=== PATIENT | female | born 2000 | race Two or more races ===

== ENCOUNTER 2024-09-05 17:05 | Emergency (ER) | payer MEDICAID, SELFPAY ==
[2024-09-05 17:09] VITALS: BMI 21.4
[2024-09-05 17:49] VITALS: BP 161/88; PULSE 76; RESP 18; TEMP 36.9; O2SAT 98
--- NOTE | 2024-09-05 17:54 | PD.EDRME ---
Rapid Medical Screening Exam RME Arrival date/time: 09/05/24 17:05 23-year-old female presents to the emergency department complaint of abdominal pain Chief Complaint: Abdominal Pain Vital signs: Vital Signs Temperature 98.5 F 09/05/24 17:49 Pulse Rate 76 09/05/24 17:49 Respiratory Rate 18 09/05/24 17:49 Blood Pressure 161/88 H 09/05/24 17:49 Pulse Oximetry (%) 98 09/05/24 17:49 Oxygen Delivery Method Room Air 09/05/24 17:49
--- NOTE | 2024-09-05 17:55 | XR_ITS ---
Examination: CT abdomen and pelvis without contrast. Coronal 3-D reconstructions. Sagittal 2-D reconstructions. Date and time of exam:September 15, 2024 1925 hrs. Indications: Sudden onset left lower abdominal pain nausea today CTDI: vol (mGy): 131 DLP: (mGycm): 252 Technique: Axial images of the abdomen have been obtained, 3 mm slice thickness Intravenous contrast material has not been administered. Low dose protocols were performed. One or more of the following dose reduction techniques were used; automated exposure control, adjustment of the mA and/or KV according to patient size, use of iterative reconstruction technique. Findings: No focal liver or splenic lesions Contracted gallbladder No pancreatic mass No renal or ureteral calculi, no hydronephrosis Aorta normal size No bowel obstruction Partial visualization normal appendix No diverticulitis Contracted urinary bladder with urinary bladder wall thickening Impression: No renal or ureteral calculi No CT findings of appendicitis or bowel obstruction Thickened urinary bladder wall, consider cystitis
[2024-09-05 18:26] LABS: Basophils % (Auto) 1 % (0-2.5); Eosinophils # (Auto) 0.1 Thou/mm3 (0.0-0.5); Eosinophils % (Auto) 1 % (0-10); Hematocrit 44.3 % (36.0-46.0); Hemoglobin 14.4 g/dL (12.0-16.0); Immature Granulocytes % (Auto) 0 % (0-0); Immature Granulocytes Auto 0.01 Thou/mm3 (0.00-0.00); Lymphocytes # (Auto) 2.1 Thou/mm3 (1.0-4.8); Lymphocytes % (Auto) 32 % (10-50); Mean Corpuscular HGB Conc 32.5 g/dl (31.0-37.0); Mean Corpuscular Volume 83 fL (80-100); Monocytes # (Auto) 0.7 Thou/mm3 (0.0-0.8); Monocytes % (Auto) 10 % (0-12); Neutrophils # (Auto) 3.7 Thou/mm3 (1.8-7.7); Neutrophils % (Auto) 56 % (37-80); Nucleated Red Blood Cell % 0 /100 WBC (0); Platelet Count 310 Thou/mm3 (140-440); RDW Standard Deviation 40.7 fL (36.4-46.3); Red Blood Count 5.34 Miln/mm3 (4.00-5.20); White Blood Count 6.6 Thou/mm3 (3.6-11.0)
[2024-09-05 18:43] LABS: Alanine Aminotransferase 11 U/L (10-49); Albumin, Serum 5.6 gm/dL (3.5-5.0); Albumin/Globulin Ratio 2.2 (1.2-2.2); Alkaline Phosphatase 78 U/L (46-116); Anion Gap 10 (7-16); Aspartate Amino Transferase 21 U/L (0-34); BUN/Creatinine Ratio 17 Ratio (12-20); Bilirubin,Total 1.9 mg/dL (0.3-1.2); Blood Urea Nitrogen 15 mg/dL (9-23); Calcium 10.5 mg/dL (8.3-10.6); Calcium (Corrected) 10.5 mg/dL (8.5-10.1); Carbon Dioxide 26.9 mMol/L (20.0-31.0); Chloride 107 mMol/L (98-107); Creatinine (Component) 0.9 mg/dL (0.6-1.3); Estimated Creatinine Clearance 85.4 mL/min (>60); Globulin 2.5 gm/dL (2.3-3.5); Glucose 96 mg/dL (74-106); Lipase 40 U/L (12-53); Osmolality,Calculated 287 (275-295); Potassium 4.8 mMol/L (3.4-5.1); Sodium 144 mMol/L (136-145); Total Protein 8.1 gm/dL (5.7-8.2); eGFR > 60 See Note
[2024-09-05 18:57] LABS: Collection Type, Urine Clean Catch
[2024-09-05 19:12] LABS: Bilirubin,Urine Negative (Negative); Blood,Urine Negative (Negative); Clarity,Urine Clear (Clear/Hazy); Color,Urine Yellow (Lt Yel-Yel); Culture Indicated,Urine Not Indicated; Glucose, Urine Negative (Negative); Ketones,Urine Trace (Negative); Leukocyte Esterase,Urine Negative (Negative); Nitrite,Urine Negative (Negative); Protein,Urine Trace (Neg - Trace); RBC,Urine 4 /hpf (0-3); Specific Gravity,Urine 1.034 (1.001-1.035); Squamous Epithelial Cell,Urine 2 /hpf (0-5); Urobilinogen,Urine Negative mg/dL (0.0-1.0); WBC,Urine 1 /hpf (0-5)
[2024-09-05 19:13] LABS: HCG Qualitative,Urine Negative
--- NOTE | 2024-09-05 21:07 | PD.EDABDPN ---
ED Abdominal Pain RME/HPI General Chief Complaint: Abdominal Pain Stated complaint: ABD PAIN SINCE THIS AM Time seen by provider: 09/05/24 18:46 Arrival date/time: 09/05/24 17:05 RME / HPI RME / HPI narrative: 23-year-old female presents to the emergency department complaint of abdominal pain. Onset of symptoms earlier this morning as left lower quadrant pain described as dull ache, severity mild. Patient denies any dysuria denies any fever denies any vomiting denies any other complaints no medication was taken prior travel. Related Data Previous Rx's ?Medication ?Instructions ?Recorded ibuprofen 600 mg tablet 600 mg PO Q8H PRN pain #30 tabs 11/11/21 ondansetron 4 mg disintegrating 4 mg PO Q8H PRN nausea and 02/14/23 tablet vomiting #10 tabs Allergies Allergy/AdvReac Type Severity Reaction Status Date / Time No Known Allergies Allergy Verified 09/05/24 17:05 Review of Systems Review of Systems Narrative Review of Systems: Review of system reviewed and within normal limits except mentioned in HPI ED Exam Narrative Physical exam: VITAL SIGNS: Reviewed. GENERAL APPEARANCE: Alert and interactive, follows commands, no acute distress, HEAD AND FACE: Non-traumatic. ENT: PERRL, pink conjunctivitis, eyelid no trauma, Mucous membrane moist. NECK: Supple, nontender, no nuchal rigidity. CHEST: No tenderness, no crepitus, no paradoxical movement, no retractions. LUNGS: Clear, well ventilated, symmetric, no rales, no wheezing, no ronchi, no stridor, good breath sounds bilaterally. HEART: Regular rate, regular rhythm, no murmur, no gallops. ABDOMEN: Soft, positive bowel sounds, nondistended, no guarding, nontender, no rebound, no masses, RECTAL: Deferred. GENITAL: Deferred. NEUROLOGICAL: Gross motor function intact sensory function intact, Appropriate for age. MUSCULOSKELETAL: low back nontender, full range of motion. EXTREMITIES: Nontender, full range of motion. SKIN: Color pink, dry, no rash, no lacerations, no abrasions, no contusions. LYMPHATICS: Deferred. Course Quality Measures none Orders Category Date Time Status CT abdomen pelvis wo con Stat Exams 09/05/24 17:55 Completed CBC Stat Lab 09/05/24 18:00 Completed Comprehensive Metabolic Panel Stat Lab 09/05/24 18:00 Completed HCG Qualitative,Urine Stat Lab 09/05/24 18:50 Completed Lipase Stat Lab 09/05/24 18:00 Completed UA, C/S IF [Urinalysis, C/S if Indicated] Stat Lab 09/05/24 18:50 Completed Vital Signs Vital signs: Vital Signs Temperature 98.5 F 09/05/24 17:49 Pulse Rate 76 09/05/24 17:49 Respiratory Rate 18 09/05/24 17:49 Blood Pressure 161/88 H 09/05/24 17:49 Pulse Oximetry (%) 98 09/05/24 17:49 Oxygen Delivery Method Room Air 09/05/24 17:49 Abdominal Pain MDM [facility] Narrative [facility] Narrative:: 23-year-old female presents to the emergency department complaint of abdominal pain. Onset of symptoms earlier this morning as left lower quadrant pain described as dull ache, severity mild. Patient denies any dysuria denies any fever denies any vomiting denies any other complaints no medication was taken prior travel. Laboratory workup all came back normal, no leukocytosis on CBC, CMP unremarkable, urinalysis no UTI. CT scan of the abdomen pelvis came back unremarkable. Results discussed with the family. Patient Patient appears nontoxic and hemodynamically stable. Patient discharged home and instructed to follow-up with primary care provider in 24 to 48 hours. Instructed to return to the emergency department immediately if worsening of symptoms Patient data External records reviewed:: None Clinical information provided by:: patient and family Social determinants that could affect healthcare access:: none Patient has the following chronic illnesses:: None How is presenting disease/condition affected by chronic disease/condition?: no chronic disease Evaluation data The following diagnostics were reviewed and interpreted by me:: lab results and radiology exam(s) Lab and/or radiology exams considered but not ordered:: None Interpretation Summary: See results in MDM Medications / Prescriptions Medications or Prescriptions considered but not ordered:: None Medication administrations:: None Consultations Consultation(s) initiated? (list below): No Diagnosis Differential diagnosis abdominal pain: abdominal pain and acute appendicitis Most likely diagnosis given after review of the tests above:: Abdominal pain Admission Indicated Admission indicated?: not indicated Admission Request Was there a request for admission?: No Disposition Plan Disposition Plan: Discharge Discharge Attestation Discharge Attestation: The patient and all family members were given an opportunity to ask questions and understood the discharge instructions. Discharge instructions specifically effects, indications for sooner follow up or return to the emergency department, and the expected course of current diagnosis. Patient condition: Stable Discharge Plan Plan Patient Disposition: HOME (Self Care) Disposition Comment: stable Prescriptions/Referrals Prescriptions/Med Rec: No Action ibuprofen 600 mg tablet 600 mg PO Q8H PRN (Reason: pain) Qty: 30 0RF ondansetron 4 mg tablet,disintegrating 4 mg PO Q8H PRN (Reason: nausea and vomiting) Qty: 10 0RF Referrals: Jerrell Mcclelland PA-C [Primary Care Provider] - In 1 week Problem List Clinical Impression: Abdominal pain Patient/Caregiver Discharge Instructions Discharge Activity: activity as tolerated Education Materials: Abdominal Pain Additional Instructions: Thank you for the opportunity for serving you today. You are stable for discharged . You are advised to: Follow-up with your PCP in 1 to 2 days Return to ED for worsening of symptoms Increase oral fluids Take [id number] Tylenol or Motrin as needed for pain Print Language: Bel[place]ian Stand Alone Forms: Michelle Award Info., Patient Portal Info Letter REYNALDO/SEHLL Supervising Physician ANNMARIE Supervising Physician: MD Veronique
== END 2024-09-05 21:10 | disposition home or self-care (01) ==
PROVIDERS: Nurse Practitioner Primary Care; Emergency Provider Emergency Medicine; PCP Family Medicine
DX: R10.32 Left lower quadrant pain (principal)
CPT/HCPCS: 36415; 74176; 80053; 81001; 81025; 83690; 85025; 99284